=== PATIENT | female | born 1990 | race Caucasian/White ===

== ENCOUNTER 2017-04-17 19:46 | Emergency (ER) | payer OTHER ==
[~2017-04-17] VITALS: Ht 162.6 cm; Wt 81.8 kg
[2017-04-17 23:06] VITALS: BP 136/77
== END 2017-04-17 23:17 | disposition home or self-care (01) ==
LOC: EMS 19:49
DX: M62.830 Muscle spasm of back (principal); M54.2 Cervicalgia; V49.49XA Driver injured in collision with other motor vehicles in traffic accident, initial encounter; Y93.89 Activity, other specified; Y92.89 Other specified places as the place of occurrence of the external cause; Y99.8 Other external cause status
CPT/HCPCS: 81025; 99283